=== PATIENT | female | born 1950 | race American Indian/Alaskan Native ===

== ENCOUNTER 2016-11-06 11:40 | Emergency (ER) | payer BC ==
[2016-11-06 11:47] VITALS: BMI 31.6
[2016-11-06 11:51] VITALS: RESP 18; TEMP 98.2; O2SAT 98
--- NOTE | 2016-11-06 12:04 | ED PDOC ---
Arrival/HPI - General Chief Complaint: Abdominal Pain Time Seen by Provider: 11/06/16 11:54 Historian: Patient - History of Present Illness Narrative History of Present Illness (Text): 11/06/16 11:55 A 66 year old female, whose past medical history includes GERD, Breast CA with Lumpectomy, and hysterectomy, is sent to the emergency department by Dr. Noland. Dr. Noland called the emergency department prior to the arrival of the patient and states she saw the patient and is sending her into the emergency department to rule out appendicitis. Patient is complaining of left suprapubic pain, which radiates to the left groin and back. She notes the pain is intermittent. Patient denies any fever, nausea, vomiting, urinary/bowel changes, or any other complaints at this time. The patient does not smoke or take drugs but does drink occasionally. Patient declines pain medication at this time. PMD: Dr. Ghosh Oncologist: Dr. Noland Time/Duration: 1-3 hours Symptom Onset: Sudden Symptom Course: Intermittent Quality: Other Activities at Onset: Rest Context: Home Associated Symptoms (Text): 11/06/16 13:59 Left lower quadrant pain with radiation into the left lower back and left groin for 2 days. Seen by her oncologist and directed to the emergency department to rule out appendicitis. Patient is refusing pain medication. No nausea vomiting diarrhea constipation or GI bleed. No dysuria frequency urgency or hematuria. No numbness tingling or paresthesias. Patient appears comfortable and in no distress. Past Medical History - Provider Review Nursing Documentation Reviewed: Yes - Infectious Disease Hx of Infectious Diseases: None - Tetanus Immunization Tetanus Immunization: Unknown - Cardiac Hx Cardiac Disorders: Yes - Pulmonary Hx Respiratory Disorders: No - Neurological Hx Neurological Disorder: No - HEENT Hx HEENT Disorder: No - Renal Hx Renal Disorder: No - Endocrine/Metabolic Hx Endocrine Disorders: No - Hematological/Oncological Hx Blood Disorders: No - Integumentary Hx Dermatological Disorder: No - Musculoskeletal/Rheumatological Hx Musculoskeletal Disorders: No - Gastrointestinal Hx Gastrointestinal Disorders: Yes Hx Gastroesophageal Reflux: Yes - Genitourinary/Gynecological Hx Genitourinary Disorders: No - Psychiatric Hx Psychophysiologic Disorder: No Hx Depression: No Hx Emotional Abuse: No Hx Physical Abuse: No Hx Substance Use: No - Past Surgical History Past Surgical History: Non-Contributing (also with breast biopsy and R eye surgery (scar on forhead from prior surgery)) - Surgical History Hx Hysterectomy: Yes Other/Comment: L lumphectomy jun 2016. R chest port placed - Anesthesia Hx Anesthesia: Yes Hx Anesthesia Reactions: No Hx Malignant Hyperthermia: No - Suicidal Assessment Feels Threatened In Home Enviroment: No Family/Social History - Physician Review Nursing Documentation Reviewed: Yes Family/Social History: Unknown Family HX Smoking Status: Never Smoked Hx Alcohol Use: Yes Hx Substance Use: No Hx Substance Use Treatment: No Allergies/Home Meds Allergies/Adverse Reactions: Allergies Penicillins Allergy (Verified 11/06/16 11:46) RASH Home Medications: Home Meds Medication Instructions Recorded Confirmed Acetaminophen [Tylenol 325mg tab] 650 mg PO PRN PRN 11/06/16 11/06/16 Acyclovir [Zovirax] 400 mg PO BID 11/06/16 11/06/16 Calcium Carbonate [Calcium] 500 mg PO DAILY 11/06/16 11/06/16 Magnesium Oxide [Magnesium] 400 mg PO DAILY 11/06/16 11/06/16 Multivit-Minerals/Folic Acid [One 1 tab PO DAILY 11/06/16 11/06/16 Daily Womens 50 Plus Tab] Omeprazole [Omeprazole] 20 mg PO DAILY 11/06/16 11/06/16 Oxycodone HCl [Oxycontin] 10 mg PO TID 11/06/16 11/06/16 Review of Systems - Physician Review All systems were reviewed & negative as marked: Yes - Review of Systems Constitutional: absent: Fevers Respiratory: Normal Cardiovascular: Normal Gastrointestinal: Abdominal Pain. absent: Stool Changes, Constipation, Diarrhea , Nausea, Vomiting, Hematochezia Genitourinary Female: absent: Dysuria, Frequency, Hematuria, Urine Output Changes Musculoskeletal: Back Pain Neurological: Normal Physical Exam Vital Signs Reviewed: Yes Vital Signs Temp Pulse Resp BP Pulse Ox 11/06/16 13:36 79 18 121/75 98 11/06/16 11:50 98.2 F 86 18 123/78 98 Temperature: Afebrile Blood Pressure: Normal Pulse: Regular Respiratory Rate: Normal Appearance: Positive for: Well-Appearing, Non-Toxic, Comfortable Pain Distress: None Mental Status: Positive for: Alert and Oriented X 3 - Systems Exam Head: Present: Atraumatic, Normocephalic Pupils: Present: PERRL Extroacular Muscles: Present: EOMI Conjunctiva: Present: Normal Mouth: Present: Moist Mucous Membranes Pharnyx: No: ERYTHEMA, EXUDATE, TONSILS ENLARGED Neck: Present: Normal Range of Motion Respiratory/Chest: Present: Clear to Auscultation, Good Air Exchange. No: Respiratory Distress, Accessory Muscle Use Cardiovascular: Present: Regular Rate and Rhythm, Normal S1, S2. No: Murmurs Abdomen: Present: Normal Bowel Sounds. No: Tenderness, Distention, Peritoneal Signs, Rebound, Guarding Back: No: CVA Tenderness Upper Extremity: Present: Normal Inspection. No: Cyanosis, Edema Lower Extremity: Present: Normal Inspection. No: Edema Neurological: Present: GCS=15, CN II-XII Intact, Speech Normal, Motor Func Grossly Intact Skin: Present: Warm, Dry, Normal Color. No: Rashes Psychiatric: Present: Alert, Oriented x 3, Normal Insight, Normal Concentration Medical Decision Making ED Course and Treatment: 11/06/16 11:55 Impression: A 66 year old female with left suprapubic pain. Differential Diagnosis include but are not limited to: diverticulitis Plan: -- Abdomen/Pelvis CT -- Labs -- Urinalysis -- Reassess and disposition Prior Visits: Notes and results from previous visits were reviewed. The patient last presented to the emergency department on 07/17/16 for evaluation of epigastric abdominal pain radiating to the med-sternal chest. Progress Notes: - Lab Interpretations Lab Results: 11/06/16 11:55 11/06/16 11:55 Lab Results 11/06/16 11:55: Sodium 137, Potassium 4.1, Chloride 105, Carbon Dioxide 28, Anion Gap 8 L, BUN 11, Creatinine 0.7, Est GFR ( Amer) > 60, Est GFR (Non -Af Amer) > 60, Random Glucose 85, Calcium 8.9, Total Bilirubin 0.4, AST 46 H, ALT 37, Alkaline Phosphatase 118, Total Protein 6.3, Albumin 3.3, Globulin 3.0, Albumin/Globulin Ratio 1.1, Lipase 38 11/06/16 11:55: Urine Color Yellow, Urine Appearance Clear, Urine pH 6.0, Ur Specific [place] 1.015, Urine Protein Negative, Urine Glucose (UA) Negative, Urine Ketones Negative, Urine Blood Trace-intact H, Urine Nitrate Negative, Urine Bilirubin Negative, Urine Urobilinogen 0.2, Ur Leukocyte Esterase Negative , Urine RBC 1 - 3, Urine WBC 0 - 2, Ur Epithelial Cells 1 - 3, Amorphous Sediment Small, Urine Bacteria Many, Urine Other Uyeast 11/06/16 11:55: PT 10.3, INR 0.95, APTT 27.1 11/06/16 11:55: WBC 3.3 L D, RBC 3.94, Hgb 9.9 L, Hct 31.0 L, MCV 78.7 L, MCH 25.1, MCHC 31.9, RDW 19.5 H, Plt Count 230, MPV 8.8, Gran % 49.0 L, Lymph % ( Auto) 35.7 H, Hyde % (Auto) 13.2 H, Eos % (Auto) 1.8, Baso % (Auto) 0.3, Gran # 1.63, Lymph # 1.2, Hyde # 0.4, Eos # 0.1, Baso # 0.01 I have reviewed the lab results: Yes - RAD Interpretation Radiology Orders: 11/06/16 11:59 ABD & PELVIS W/O PO OR IV CONT [CT] Stat CT scan of the abdomen and pelvis is read by the radiologist shows no acute findings. Word Processor Operator: Radiologist - Scribe Statement The provider has reviewed the documentation as recorded by the Scribe Nova Sutton Provider Scribe Attestation: All medical record entries made by the Scribe were at my direction and personally dictated by me. I have reviewed the chart and agree that the record accurately reflects my personal performance of the history, physical exam, medical decision making, and the department course for this patient. I have also personally directed, reviewed, and agree with the discharge instructions and disposition. Disposition/Present on Arrival - Present on Arrival Any Indicators Present on Arrival: No History of DVT/PE: No History of Uncontrolled Diabetes: No Urinary Catheter: No History of Decub. Ulcer: No History Surgical Site Infection Following: None - Disposition Have Diagnosis and Disposition been Completed?: Yes Diagnosis: Abdominal pain Disposition: HOME/ ROUTINE Disposition Time: 14:02 Patient Plan: Discharge Condition: GOOD Discharge Instructions (ExitCare): Acute Abdominal Pain (ED) Additional Instructions: Symptomatic treatment. Follow-up with PMD. Follow up in ER as needed. Referrals: PCP,NO [Primary Care Provider] - Follow up with primary
[2016-11-06 12:36] LABS: ADD MANUAL DIFF? NO
[2016-11-06 12:37] LABS: BASO # 0.01 K/mm3 (0.0-2.0); BASO % 0.3 % (0.0-3.0); EOS # 0.1 (0.0-0.7); EOS % 1.8 % (1.5-5.0); GRAN # 1.63 (1.4-6.5); LYMPH # 1.2 (1.2-3.4); LYMPH % 35.7 % (22.0-35.0); MEAN CELL VOLUME 78.7 fL (80.0-105.0); MEAN CORPUSCULAR HEMOGLOBIN 25.1 pg (25.0-35.0); MEAN CORPUSCULAR HGB CONC 31.9 g/dl (31.0-37.0); MEAN PLATELET VOLUME 8.8 fl (7.0-11.0); MONO # 0.4 (0.1-0.6); MONO % 13.2 % (1.0-6.0); PLATELET COUNT 230 10^3/uL (120.0-450.0); RED CELL DISTRIBUTION WIDTH 19.5 % (11.5-14.5); WHITE BLOOD COUNT 3.3 10^3/ul (4.5-11.0)
[2016-11-06 12:39] LABS: URINE APPEARANCE CLEAR (CLEAR); URINE BILIRUBIN NEGATIVE (NEGATIVE); URINE BLOOD TRACE-INTACT (NEGATIVE); URINE COLOR YELLOW (YELLOW); URINE GLUCOSE (UA) NEGATIVE (NEGATIVE); URINE KETONE NEGATIVE (NEGATIVE); URINE LEUKOCYTE ESTERASE NEGATIVE Leu/uL (NEGATIVE); URINE PROTEIN NEGATIVE mg/dL (<30 mg/dL); URINE UROBILINOGEN 0.2 E.U./dL (<1 E.U./dL)
[2016-11-06 12:47] LABS: ALB/GLOB RATIO 1.1 (1.1-1.8); ALKALINE PHOSPHATASE 118 U/L (38-133); ALT/SGPT 37 U/L (7-56); AST/SGOT 46 U/L (15-39); BILIRUBIN,TOTAL 0.4 mg/dL (0.2-1.3); BLOOD UREA NITROGEN 11 mg/dL (7-21); CALCIUM 8.9 mg/dL (8.4-10.5); CARBON DIOXIDE 28 mmol/L (21-33); CHLORIDE 105 mmol/L (98-107); GFR AFRICAN-AMERICAN > 60; GLUCOSE,RANDOM 85 mg/dL (70-110); LIPASE 38 U/L (23-300); POTASSIUM 4.1 mmol/L (3.6-5.0); SODIUM 137 mmol/L (132-148); TOTAL PROTEIN 6.3 g/dL (5.8-8.3)
[2016-11-06 12:49] LABS: INR 0.95 (0.93-1.08); PARTIAL THROMBOPLASTIN TIME 27.1 Seconds (23.7-30.8)
[2016-11-06 12:54] LABS: URINE AMORPHOUS SEDIMENT SMALL; URINE BACTERIA MANY (NEG); URINE WBC 0 - 2 /hpf (0-6)
[2016-11-06 13:37] VITALS: BP 121/75; PULSE 79
--- NOTE | 2016-11-06 13:57 | CT ---
PROCEDURE: CT Abdomen and Pelvis without intravenous contrast HISTORY: pain COMPARISON: None. TECHNIQUE: Technique. Contrast Dose: Radiation dose: Total exam DLP = 1076 mGy-cm. This CT exam was performed using one or more of the following dose reduction techniques: Automated exposure control, adjustment of the mA and/or kV according to patient size, and/or use of iterative reconstruction technique. FINDINGS: LOWER THORAX: Unremarkable. LIVER: Unremarkable. No gross lesion or ductal dilatation. GALLBLADDER AND BILE DUCTS: Unremarkable. PANCREAS: Unremarkable. No gross lesion or ductal dilatation. SPLEEN: Unremarkable. ADRENALS: Unremarkable. No mass. KIDNEYS AND URETERS: Unremarkable. No hydronephrosis. No solid mass. VASCULATURE: Unremarkable. No aortic aneurysm. BOWEL: Minimal colonic diverticulosis.. No obstruction. No gross mural thickening. APPENDIX: Unremarkable. Normal appendix. PERITONEUM: Unremarkable. No free fluid. No free air. LYMPH NODES: Unremarkable. No enlarged lymph nodes. BLADDER: Unremarkable. REPRODUCTIVE: Hysterectomy.. BONES: Grade 1 anterolisthesis at L5-S1 OTHER FINDINGS: None. IMPRESSION: No acute pathology.
== END 2016-11-06 14:10 | disposition home or self-care (01) ==
LOC: ED 11:40
DX: R10.9 Unspecified abdominal pain (principal); K21.9 Gastro-esophageal reflux disease without esophagitis

== ENCOUNTER 2017-06-28 08:55 | Emergency (ER) | payer BC ==
[2017-06-28 08:56] VITALS: BMI 31.6
[2017-06-28 09:15] VITALS: BP 130/79; PULSE 78; RESP 16; TEMP 97.9; O2SAT 100
--- NOTE | 2017-06-28 10:20 | ED PDOC ---
Arrival/HPI - General Chief Complaint: Eye Problem Time Seen by Provider: 06/28/17 09:34 Past Medical History - Infectious Disease Hx of Infectious Diseases: None - Tetanus Immunization Tetanus Immunization: Unknown - Cardiac Hx Cardiac Disorders: Yes - Pulmonary Hx Respiratory Disorders: No - Neurological Hx Neurological Disorder: No - HEENT Hx HEENT Disorder: No - Renal Hx Renal Disorder: No - Endocrine/Metabolic Hx Endocrine Disorders: No - Hematological/Oncological Hx Blood Disorders: Yes Hx Cancer: Yes (BREAST) - Integumentary Hx Dermatological Disorder: No - Musculoskeletal/Rheumatological Hx Musculoskeletal Disorders: No - Gastrointestinal Hx Gastrointestinal Disorders: Yes Hx Gastroesophageal Reflux: Yes - Genitourinary/Gynecological Hx Genitourinary Disorders: No - Psychiatric Hx Psychophysiologic Disorder: No Hx Depression: No Hx Emotional Abuse: No Hx Physical Abuse: No Hx Substance Use: No - Past Surgical History Past Surgical History: Non-Contributing (also with breast biopsy and R eye surgery (scar on forhead from prior surgery)) - Surgical History Hx Hysterectomy: Yes Other/Comment: L lumphectomy jun 2016. R chest port placed - Anesthesia Hx Anesthesia: Yes Hx Anesthesia Reactions: No Hx Malignant Hyperthermia: No - Suicidal Assessment Feels Threatened In Home Enviroment: No Family/Social History Smoking Status: Never Smoked Hx Alcohol Use: Yes Hx Substance Use: No Hx Substance Use Treatment: No Allergies/Home Meds Allergies/Adverse Reactions: Allergies Penicillins Allergy (Verified 06/28/17 09:09) RASH Home Medications: Home Meds Medication Instructions Recorded Confirmed Acetaminophen [Tylenol 325mg tab] 650 mg PO PRN PRN 11/06/16 11/06/16 Acyclovir [Zovirax] 400 mg PO BID 11/06/16 11/06/16 Calcium Carbonate [Calcium] 500 mg PO DAILY 11/06/16 11/06/16 Magnesium Oxide [Magnesium] 400 mg PO DAILY 11/06/16 11/06/16 Multivit-Minerals/Folic Acid [One 1 tab PO DAILY 11/06/16 11/06/16 Daily Womens 50 Plus Tab] Omeprazole [Omeprazole] 20 mg PO DAILY 11/06/16 11/06/16 Oxycodone HCl [Oxycontin] 10 mg PO TID 11/06/16 11/06/16 Physical Exam Vital Signs Temp Pulse Resp BP Pulse Ox 06/28/17 09:13 97.9 F 78 16 130/79 100 Disposition/Present on Arrival - Present on Arrival Any Indicators Present on Arrival: No History of DVT/PE: No History of Uncontrolled Diabetes: No Urinary Catheter: No History of Decub. Ulcer: No History Surgical Site Infection Following: None - Disposition Have Diagnosis and Disposition been Completed?: Yes Diagnosis: Eye pain Disposition: HOME/ ROUTINE Disposition Time: 10:18 Patient Plan: Discharge Condition: STABLE Discharge Instructions (ExitCare): Eye Pain (ED) Referrals: Jean Paul Ghosh MD [Primary Care Provider] - Follow up with primary Edward Ford MD [Staff Provider] - Follow up with primary
--- NOTE | 2017-06-28 10:24 | ED PDOC ---
Arrival/HPI - General Chief Complaint: Eye Problem Time Seen by Provider: 06/28/17 09:34 Historian: Patient, Spouse - History of Present Illness Narrative History of Present Illness (Text): 06/28/17 10:22 A 67 year old female, who denies any significant past medical history, presents to the emergency department for right eye burning sensation. The patient reports she got out of the shower and was drying her face when her eye began to burn. She admits to flushing out her eye with water, but still had no relief with the burning sensation afterwards, she thinks there may have been shampoo or soap that got into the eye. The patient states upon evaluation that sitting in the emergency department her eye is beginning to feel better, but still taylor. The patient denies any vision changes, trauma to the eye, or any other complaints at this time. Denies contact lens use. Time/Duration: Prior to Arrival Symptom Onset: Sudden Symptom Course: Improving Quality: Burning Activities at Onset: Light Context: Home Past Medical History - Provider Review Nursing Documentation Reviewed: Yes - Infectious Disease Hx of Infectious Diseases: None - Tetanus Immunization Tetanus Immunization: Unknown - Cardiac Hx Cardiac Disorders: Yes - Pulmonary Hx Respiratory Disorders: No - Neurological Hx Neurological Disorder: No - HEENT Hx HEENT Disorder: No - Renal Hx Renal Disorder: No - Endocrine/Metabolic Hx Endocrine Disorders: No - Hematological/Oncological Hx Blood Disorders: Yes Hx Cancer: Yes (BREAST) - Integumentary Hx Dermatological Disorder: No - Musculoskeletal/Rheumatological Hx Musculoskeletal Disorders: No - Gastrointestinal Hx Gastrointestinal Disorders: Yes Hx Gastroesophageal Reflux: Yes - Genitourinary/Gynecological Hx Genitourinary Disorders: No - Psychiatric Hx Psychophysiologic Disorder: No Hx Depression: No Hx Emotional Abuse: No Hx Physical Abuse: No Hx Substance Use: No - Past Surgical History Past Surgical History: Non-Contributing (also with breast biopsy and R eye surgery (scar on forhead from prior surgery)) - Surgical History Hx Hysterectomy: Yes Other/Comment: L lumphectomy jun 2016. R chest port placed - Anesthesia Hx Anesthesia: Yes Hx Anesthesia Reactions: No Hx Malignant Hyperthermia: No - Suicidal Assessment Feels Threatened In Home Enviroment: No Family/Social History - Physician Review Nursing Documentation Reviewed: Yes Family/Social History: No Known Family HX Smoking Status: Never Smoked Hx Alcohol Use: Yes Hx Substance Use: No Hx Substance Use Treatment: No Allergies/Home Meds Allergies/Adverse Reactions: Allergies Penicillins Allergy (Verified 06/28/17 09:09) RASH Home Medications: Home Meds Medication Instructions Recorded Confirmed Acetaminophen [Tylenol 325mg tab] 650 mg PO PRN PRN 11/06/16 11/06/16 Acyclovir [Zovirax] 400 mg PO BID 11/06/16 11/06/16 Calcium Carbonate [Calcium] 500 mg PO DAILY 11/06/16 11/06/16 Magnesium Oxide [Magnesium] 400 mg PO DAILY 11/06/16 11/06/16 Multivit-Minerals/Folic Acid [One 1 tab PO DAILY 11/06/16 11/06/16 Daily Womens 50 Plus Tab] Omeprazole [Omeprazole] 20 mg PO DAILY 11/06/16 11/06/16 Oxycodone HCl [Oxycontin] 10 mg PO TID 11/06/16 11/06/16 Review of Systems - Physician Review All systems were reviewed & negative as marked: Yes - Review of Systems Constitutional: absent: Fevers Eyes: absent: Vision Changes, Photophobia Physical Exam - Physical Exam Narrative Physical Exam (Text): Constitutional: No acute distress. Head: Normocephalic. Atraumatic. Eyes: arcus senilis. clear discharge/tears. conjunctival injection. no hyphema. no corneal abrasion. negative roland test. PERRL. EOMI. ENT: Moist mucous membranes. Neck: Supple. Cardiovascular: Regular rate. Chest: No tenderness. Respiratory: Clear to auscultation bilaterally. GI: Soft. Nontender. Nondistended. Back: No CVA tenderness. Musculoskeletal: No tenderness or swelling of extremities. Skin: No rash. Neurologic: Alert, no focal deficit. Vital Signs Reviewed: Yes Vital Signs Temp Pulse Resp BP Pulse Ox 06/28/17 09:13 97.9 F 78 16 130/79 100 Temperature: Afebrile Blood Pressure: Normal Pulse: Regular Respiratory Rate: Normal Appearance: Positive for: Well-Appearing, Non-Toxic, Comfortable Pain Distress: None Mental Status: Positive for: Alert and Oriented X 3 Medical Decision Making ED Course and Treatment: Discharged home, f/u Ophtho, likely local irritation from soap/shampoo and no evidence of other emergent pathology. - Scribe Statement The provider has reviewed the documentation as recorded by the Scribnorberto Leone Velasquez Provider Scribe Attestation: All medical record entries made by the Scribe were at my direction and personally dictated by me. I have reviewed the chart and agree that the record accurately reflects my personal performance of the history, physical exam, medical decision making, and the department course for this patient. I have also personally directed, reviewed, and agree with the discharge instructions and disposition. Disposition/Present on Arrival - Present on Arrival Any Indicators Present on Arrival: No History of DVT/PE: No History of Uncontrolled Diabetes: No Urinary Catheter: No History of Decub. Ulcer: No History Surgical Site Infection Following: None - Disposition Have Diagnosis and Disposition been Completed?: Yes Diagnosis: Eye pain Disposition: HOME/ ROUTINE Disposition Time: 10:39 Patient Plan: Discharge Patient Problems: Current Active Problems Problem Status Onset Eye pain Acute Condition: STABLE Discharge Instructions (ExitCare): Eye Pain (ED) Referrals: Edward Ford MD [Staff Provider] - Follow up with primary Jean Paul Ghosh MD [Primary Care Provider] - Follow up with primary Forms: [employer] ([place])
== END 2017-06-28 10:39 | disposition home or self-care (01) ==
LOC: ED 08:55
DX: H57.11 Ocular pain, right eye (principal)

== ENCOUNTER → 2017-10-30 | Day surgery (SDC) | payer BC ==
[2017-10-23 11:37] VITALS: BMI 32.9
[~2017-10-30] MED LIST: Lidocaine 2% Inj (20ml) ONE; Midazolam 2 MG/2 ML VIAL ONE; Oxycodone/Acetaminophen 5/325 mg Tab PO PRN; Sodium Chloride 0.45% 1,000 ML IV SCH
[2017-10-30 09:18] LABS: BASO # 0.01 K/mm3 (0.0-2.0); BASO % 0.3 % (0.0-3.0); EOS # 0.1 (0.0-0.7); EOS % 3.5 % (1.5-5.0); GRAN # 1.75 (1.4-6.5); GRAN % 46.4 % (50.0-68.0); HEMOGLOBIN 12.7 g/dL (12.0-16.0); LYMPH # 1.6 (1.2-3.4); LYMPH % 42.6 % (22.0-35.0); MEAN CELL VOLUME 75.4 fl (80.0-105.0); MEAN CORPUSCULAR HEMOGLOBIN 24.4 pg (25.0-35.0); MEAN CORPUSCULAR HGB CONC 32.3 g/dl (31.0-37.0); MEAN PLATELET VOLUME 8.7 fl (7.0-11.0); MONO # 0.3 (0.1-0.6); MONO % 7.2 % (1.0-6.0); RBC 5.21 10^6/uL (3.5-6.1); RED CELL DISTRIBUTION WIDTH 14.7 % (11.5-14.5); WHITE BLOOD COUNT 3.8 10^3/ul (4.5-11.0)
[2017-10-30 09:27] LABS: BLOOD UREA NITROGEN 14 mg/dL (7-21); CALCIUM 9.7 mg/dL (8.4-10.5); GFR AFRICAN-AMERICAN > 60; GFR NON-AFRICAN AMERICAN > 60
[2017-10-30 09:28] LABS: INR 0.94 (0.93-1.08); PARTIAL THROMBOPLASTIN TIME 28.6 Seconds (25.1-36.5); PROTHROMBIN TIME 10.8 SECONDS (9.4-12.5)
[2017-10-30 15:29] VITALS: RESP 18; TEMP 97.2
[2017-10-30 16:15] VITALS: PULSE 90; O2SAT 98
[2017-10-30 16:34] VITALS: BP 142/72
--- NOTE | 2017-10-30 18:06 | VASCULAR ---
PROCEDURE: Removal of tunneled right internal jugular venous access port. CLINICAL HISTORY: Breast carcinoma. Completed chemotherapy. Remove port. PHYSICIAN(S): Noel Cunningham M.D. TECHNIQUE: The relative risks and indications of the procedure were explained to the patient and consent obtained. The patient was placed supine on the arteriogram table and the right neck and chest prepped and draped usual sterile fashion. Conscious sedation and monitoring were provided throughout the procedure by a nurse. Antibiotics were given prior to the procedure. 1% Xylocaine was used to anesthetize the skin and soft tissues at the port. A 4 cm incision was made. The port was bluntly dissected and removed. The catheter was removed under fluoroscopic guidance. No retained catheter fragments were seen. The pocket was lavaged with normal saline. The pocket was closed in 2 layers. The patient tolerated the procedure well. IMPRESSION: 1. Removal of tunneled right internal jugular venous access port.
== END | disposition home or self-care (01) ==
LOC: SDSVAS 08:53
PROVIDERS: ATTEND Radiology Vascular & Interventional Radiology
DX: Z45.2 Encounter for adjustment and management of vascular access device (principal); Z85.3 Personal history of malignant neoplasm of breast; Z92.21 Personal history of antineoplastic chemotherapy

== ENCOUNTER 2017-12-13 17:49 | Emergency (ER) | payer BC, MEDICARE ==
[2017-12-13 17:49] VITALS: BMI 32.9
[2017-12-13 18:03] VITALS: RESP 18; TEMP 98.2
[2017-12-13] MEDS ORDERED: Oxycodone/Acetaminophen 5/325 mg Tab PO STA (18:13)
--- NOTE | 2017-12-13 18:13 | ED PDOC ---
Arrival/HPI - General Time Seen by Provider: 12/13/17 18:02 Historian: Patient - History of Present Illness Narrative History of Present Illness (Text): 12/13/17 18:03 67 y/o male, pmh including hld, penicillin allergy, lt. lower back pain and lt. knee pain x 2 days. Pt. stated that she was mopping the floor about 2 days ago , been having lt. lower back pain and lt. knee pain, no numbness or tingling, no urinary or bowel incontinence/retention, no fever or chills, no night sweat, no hematuria, no change in vision, no other medical or psychological complaints. Past Medical History - Provider Review Nursing Documentation Reviewed: Yes - Infectious Disease Hx of Infectious Diseases: None - Tetanus Immunization Tetanus Immunization: Unknown - Cardiac Hx Pacemaker: No - Pulmonary Hx Respiratory Disorders: No - Neurological Hx Paralysis: No - HEENT Hx HEENT Disorder: No - Renal Hx Renal Disorder: No - Endocrine/Metabolic Hx Endocrine Disorders: No - Hematological/Oncological Hx Blood Transfusions: No - Integumentary Hx Dermatological Disorder: No - Musculoskeletal/Rheumatological Hx Musculoskeletal Disorders: Yes - Gastrointestinal Hx Gastrointestinal Disorders: Yes Hx Gastroesophageal Reflux: Yes - Genitourinary/Gynecological Hx Genitourinary Disorders: No - Psychiatric Hx Emotional Abuse: No Hx Physical Abuse: No Hx Substance Use: No - Past Surgical History Past Surgical History: Non-Contributing (also with breast biopsy and R eye surgery (scar on forhead from prior surgery)) - Surgical History Hx Hysterectomy: Yes Other/Comment: L lumphectomy jun 2016. R chest port placed - Anesthesia Hx Anesthesia Reactions: No Hx Malignant Hyperthermia: No - Suicidal Assessment Feels Threatened In Home Enviroment: No Family/Social History - Physician Review Nursing Documentation Reviewed: Yes Family/Social History: Unknown Family HX Smoking Status: Never Smoked Hx Alcohol Use: Yes (OCCASIONAL) Hx Substance Use: No Hx Substance Use Treatment: No Allergies/Home Meds Allergies/Adverse Reactions: Allergies Penicillins Allergy (Verified 06/28/17 09:09) RASH Home Medications: Home Meds Medication Instructions Recorded Confirmed Multivit-Minerals/Folic Acid [One 1 tab PO DAILY 11/06/16 12/13/17 Daily Womens 50 Plus Tab] Magnesium Oxide [Magnesium] 250 mg PO DAILY 10/23/17 12/13/17 Potassium Gluconate [Potassium] 99 mg PO DAILY 10/23/17 12/13/17 Pravastatin Sodium [Pravachol] 20 mg PO DAILY 10/23/17 12/13/17 Pregabalin [Lyrica] 50 mg PO BID 10/23/17 12/13/17 Calc/D3/Mag/Zn/[place] 1 tab PO DAILY 12/13/17 12/13/17 [Super Calcium] Valacyclovir HCl [Valacyclovir HCl] 500 mg PO DAILY 12/13/17 12/13/17 oxyCODONE [oxycodone Hydrochloride] 10 mg PO TID 12/13/17 12/13/17 Review of Systems - Review of Systems Constitutional: absent: Fatigue, Fevers Eyes: absent: Vision Changes ENT: absent: Hearing Changes Respiratory: absent: SOB, Cough Cardiovascular: absent: Chest Pain Gastrointestinal: absent: Abdominal Pain, Nausea, Vomiting Musculoskeletal: Arthralgias, Back Pain. absent: Neck Pain, Joint Swelling, Myalgias Skin: absent: Rash, Pruritis Neurological: absent: Headache, Dizziness Psychiatric: absent: Anxiety, Depression, Suicidal Ideation Physical Exam Vital Signs Reviewed: Yes Vital Signs Temp Pulse Resp BP Pulse Ox 12/13/17 17:58 98.2 F 64 18 136/75 98 Temperature: Afebrile Blood Pressure: Normal Pulse: Regular Respiratory Rate: Normal Appearance: Positive for: Well-Appearing, Non-Toxic, Comfortable Pain Distress: Severe Mental Status: Positive for: Alert and Oriented X 3 - Systems Exam Head: Present: Atraumatic, Normocephalic Pupils: Present: PERRL Extroacular Muscles: Present: EOMI Conjunctiva: Present: Normal Mouth: Present: Moist Mucous Membranes Neck: Present: Normal Range of Motion Respiratory/Chest: Present: Clear to Auscultation, Good Air Exchange. No: Respiratory Distress, Accessory Muscle Use Cardiovascular: Present: Regular Rate and Rhythm, Normal S1, S2. No: Murmurs Abdomen: No: Tenderness, Distention, Peritoneal Signs, Rebound, Guarding Back: Present: Normal Inspection, Paraspinal Tenderness (+ttp and spasm noted on the lt. paraspina muscle of the LS spine region with no rash, no saddling gait,). No: CVA Tenderness, Midline Tenderness, Pain with Leg Raise, Decubitus Ulcer Upper Extremity: Present: Normal Inspection. No: Cyanosis, Edema Lower Extremity: Present: Normal Inspection, Other (Lt. knee: no tenderness or swelling, no deformity, skin intact, no laceration or abrasion, FROM without limitation, sensation intact, motor 5/5, +DPPT pulses, capillary refill< 2 seconds, neurovascular intact. ). No: Edema Neurological: Present: GCS=15, CN II-XII Intact, Speech Normal Skin: Present: Warm, Dry, Normal Color. No: Rashes Psychiatric: Present: Alert, Oriented x 3, Normal Insight, Normal Concentration Medical Decision Making ED Course and Treatment: 12/13/17 18:19 Differential: UTI vs. Back strain vs. back spasm vs. degenerative joint disease -UA -LS spine and lt. knee xray -LLE venuous doppler -Toradol 30mg (last creatine within normal limit 10/2017 with no history of renal disease)/VALIUM/PERCOCET/LIDODERM PATCH -Observe and reassess 12/13/17 19:38 -[place] wrap applied. -UA show no UTI -LS spine xray show no fracture or subluxation -Lt. knee xray show degenerative changes, no fracture or dislocation -LLE Venuous doppler: as per preliminary report, no acute DVT -Pt. feels much better, has multiple lyrica prescription on the [facility] report, would defer further pain management to the orthopedic/pain management. -Discharge home lidoderm patch, flexeril, [place] wrap, cane, follow up with your own pmd and orthopedic/pain management within 2 days, return to the ER for any new or worsening signs or symptoms. - Lab Interpretations Lab Results: Lab Results 12/13/17 18:57: Urine Color Yellow, Urine Appearance Clear, Urine pH 6.0, Ur Specific [place] 1.020, Urine Protein Negative, Urine Glucose (UA) Negative, Urine Ketones Trace H, Urine Blood Trace-intact H, Urine Nitrate Negative, Urine Bilirubin Negative, Urine Urobilinogen 0.2, Ur Leukocyte Esterase Negative , Urine RBC 0 - 2, Urine WBC 2 - 5, Ur Epithelial Cells 3 - 4, Urine Bacteria Few - RAD Interpretation Radiology Orders: 12/13/17 18:15 KNEE WITH PATELLA LEFT 3 VIEW [RAD] Stat LS SPINE WITH OBL > 18 YRS OLD [RAD] Stat DUPLEX LOWER EXTRM VEIN LEFT [US] Stat Lt. knee xray: LS Spine xray; -LLE Venuous doppler: as per preliminary report, no acute DVT - Medication Orders Current Medication Orders: Lidocaine (Lidoderm) 1 ea TD STAT STA Stop: 12/13/17 20:08 Discontinued Medications Diazepam (Valium) 5 mg PO ONCE ONE PRN Reason: Protocol Stop: 12/13/17 18:15 Last Admin: 12/13/17 18:35 Dose: 5 mg Ketorolac Tromethamine (Toradol) 30 mg IM STAT STA Stop: 12/13/17 18:15 Last Admin: 12/13/17 18:34 Dose: 30 mg MAR Pain Assessment Document 12/13/17 18:34 GMI (Rec: 12/13/17 18:35 [id number] Pain Reassessment Is this a pain reassessment? Yes Sleep Is patient sleeping during reassessment? No Presence of Pain Presence of Pain Yes Pain Scale Used Pain Scale Used Numeric Location Upper or Lower Lower Pain Location Body Site Back Description Description Sharp Pain Behavior Facial Grimacing Alleviating Factors/Management Position Change Techniques Alleviating Factors Medication IM Administration Charges Document 12/13/17 18:34 GMI (Rec: 12/13/17 18:35 [facility] [id number]) Injection Site MAR Injection Site Left Gluteus Jeffery Charges for Administration # of IM Administrations 1 Lidocaine (Lidoderm) 1 ea TD DAILY AUDELIA Oxycodone/Acetaminophen (Percocet 5/325 Mg Tab) 1 tab PO STAT STA Stop: 12/13/17 18:14 Last Admin: 12/13/17 18:34 Dose: 1 tab - PA / LENS CLEANER / Resident Statement MD/DO has reviewed & agrees with the documentation as recorded. Disposition/Present on Arrival - Present on Arrival Any Indicators Present on Arrival: No History of DVT/PE: No History of Uncontrolled Diabetes: No Urinary Catheter: No History of Decub. Ulcer: No History Surgical Site Infection Following: None - Disposition Have Diagnosis and Disposition been Completed?: Yes Diagnosis: Muscle strain, Arthralgia, Low back pain Disposition: HOME/ ROUTINE Disposition Time: 18:20 Patient Plan: Discharge Patient Problems: Current Active Problems Problem Status Onset Muscle strain Acute Arthralgia Acute Low back pain Acute Condition: IMPROVED Additional Instructions: -Discharge home lidoderm patch, flexeril, [place] wrap, cane, follow up with your own pmd and orthopedic/pain management within 2 days, return to the ER for any new or worsening signs or symptoms. Prescriptions: Cyclobenzaprine [Cyclobenzaprine HCl] 10 mg PO BID PRN #20 tab PRN Reason: Other Lidocaine 5% [Lidoderm] 1 patch TOP DAILY PRN #14 patch PRN Reason: Other Referrals: Sumanth Sanford III, MD [Medical Doctor] - Follow up with primary Forms: WORK NOTE
[2017-12-13 19:04] LABS: URINE BILIRUBIN NEGATIVE (NEGATIVE); URINE BLOOD TRACE-INTACT (NEGATIVE); URINE GLUCOSE (UA) NEGATIVE (NEGATIVE); URINE LEUKOCYTE ESTERASE NEGATIVE Leu/uL (NEGATIVE); URINE PROTEIN NEGATIVE mg/dL (<30 mg/dL); URINE UROBILINOGEN 0.2 E.U./dL (<1 E.U./dL)
[2017-12-13 19:09] LABS: URINE APPEARANCE CLEAR (CLEAR); URINE COLOR YELLOW (YELLOW)
[2017-12-13 19:10] LABS: URINE BACTERIA FEW (NEG); URINE RBC 0 - 2 /hpf (0-2)
[2017-12-13] MEDS ORDERED: Lidocaine 5% Patch TD STA (20:07)
[2017-12-13 20:30] VITALS: BP 142/75; PULSE 60; O2SAT 99
--- NOTE | 2017-12-14 09:29 | US ---
PROCEDURE: Left lower extremity venous US HISTORY: Leg pain and swelling. Evaluate for DVT. PHYSICIAN(S): Noel Cunningham MD. TECHNIQUE: Duplex sonography and color-flow Doppler with graded compression were used to evaluate the deep venous system of the left lower extremity. FINDINGS: The visualized deep venous system of the left lower extremity is sonographically normal and compressible. Normal wave forms and augmentation are seen. There is no sonographic evidence for deep venous thrombosis in the visualized segments of the left lower extremity. IMPRESSION: 1. No sonographic evidence for deep venous thrombosis in the visualized segments of the left lower extremity.
[2017-12-14] MEDS ORDERED: Lidocaine 5% Patch TD SCH (10:00)
--- NOTE | 2017-12-14 10:38 | RAD ---
PROCEDURE: Left Knee Radiographs. HISTORY: Pain. COMPARISON: None. FINDINGS: BONES: No evidence of acute displaced fracture nor dislocation. The osseous structures appear intact. 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 . Suspect trace joint effusion JOINTS: As above JOINT EFFUSION: As above OTHER FINDINGS: None. IMPRESSION: No evidence of acute displaced fracture nor dislocation. The osseous structures appear intact. Tricompartmental degenerative osteoarthritis as above. . Suspect trace joint effusion
--- NOTE | 2017-12-14 10:43 | RAD ---
PROCEDURE: Radiographs of the Lumbar Spine. HISTORY: Pain COMPARISON: Comparison made with CT scan chest abdomen pelvis 09/04/2017 which image the lumbar spine in 3 planes. FINDINGS: BONES: No evidence of acute compression fractures nor retropulsed fragments. Minor chronic anterior stature loss of several lower thoracic segments. . There is also anterior subluxation L5 over S1 due to hypertrophic facet joint changes. No pars defect seen. DISC SPACES: Minor multilevel degenerative spondylosis. Changes include varying degrees of mild disc space narrowing more so along the posterior disc margins OTHER FINDINGS: None. IMPRESSION: No acute compression fractures nor retropulsed fragments. Minor chronic anterior stature loss of several lower thoracic segments. . There is also anterior subluxation L5 over S1 due to hypertrophic facet joint changes. No pars defect seen. . Mild multilevel degenerative spondylosis.
== END 2017-12-13 20:35 | disposition home or self-care (01) ==
LOC: ED 17:49
DX: M54.5 Low back pain (principal); M25.50 Pain in unspecified joint; T14.8XXA Other injury of unspecified body region, initial encounter; Y93.E5 Activity, floor mopping and cleaning
CPT/HCPCS: 72110; 73562; 81001; 93971; 96372; 99283; J1885

== ENCOUNTER 2018-06-10 10:38 | Outpatient (CLI) | payer BC | END 2018-06-10 10:39 | disposition home or self-care (01) | LOC: RAD 10:38 ==

== ENCOUNTER 2018-06-21 14:03 | Outpatient (CLI) | payer BC | END 2018-06-21 14:04 | disposition home or self-care (01) | LOC: RAD 14:03 ==

== ENCOUNTER 2018-08-28 07:59 | Outpatient (CLI) | payer BC | END 2018-08-28 08:00 | disposition home or self-care (01) | LOC: RAD 07:59 ==

== ENCOUNTER 2018-09-24 09:52 | Day surgery (SDC) | payer BC ==
[2018-09-23 10:39] VITALS: BMI 33.4
[2018-09-24] MEDS ORDERED: Propofol 10 mg/ml Inj (20 ML) ONE (12:21)
[2018-09-24] MEDS ORDERED: Sodium Chloride 0.9% 1,000 ML IV SCH (12:45)
[2018-09-24 13:29] VITALS: BP 124/69; PULSE 56; RESP 20; TEMP 98.4; O2SAT 97
== END 2018-09-24 14:15 | disposition home or self-care (01) ==
LOC: ENDO 09:52
PROVIDERS: ATTEND Internal Medicine Gastroenterology
DX: K31.7 Polyp of stomach and duodenum (principal); K29.40 Chronic atrophic gastritis without bleeding; K21.9 Gastro-esophageal reflux disease without esophagitis
CPT/HCPCS: 43239; 88305; 88342; J2001; J2704; J7030; J7040